=== PATIENT | male | born 1995 ===

== ENCOUNTER 2018-04-16 19:55 | Inpatient (IN) | payer OTHER ==
[2018-04-16] MEDS ORDERED: Belladonna-Phenobarbital PO STA (20:41)
[2018-04-16] MEDS ORDERED: Lactated Ringer's 1,000 ML IVB ONE (20:42)
[2018-04-16 21:06] LABS: BASO # 0.1 K/uL (0.0-0.2); BASO % 1.2 % (0.0-2.0); EOS # 0.1 K/uL (0.0-0.7); EOS % 0.8 % (0.0-4.0); HEMOGLOBIN 8.4 g/dL (12.0-18.0); LYMPH # 1.7 K/uL (1.0-4.3); LYMPH % 16.7 % (20.0-40.0); MEAN CELL VOLUME 59.4 fL (80.0-94.0); MEAN CORPUSCULAR HEMOGLOBIN 17.9 pg (27.0-31.0); MEAN CORPUSCULAR HGB CONC 30.2 g/dL (33.0-37.0); MEAN PLATELET VOLUME 6.4 fL (7.2-11.7); NEUT # 7.2 K/uL (1.8-7.0); NEUT % 71.3 % (50.0-75.0); RBC 4.7 Mil/uL (4.40-5.90); RED CELL DISTRIBUTION WIDTH 18.4 % (11.5-14.5)
[2018-04-16] MEDS ORDERED: Belladonna-Phenobarbital ONE (21:07)
[2018-04-16 21:24] LABS: ALB/GLOB RATIO 1.2 (1.0-2.1); ALBUMIN 3.7 g/dL (3.5-5.0); ALT/SGPT 16 U/L (21-72); AST/SGOT 10 U/L (17-59); BLOOD UREA NITROGEN 13 mg/dL (9-20); CALCIUM 8.9 mg/dl (8.6-10.4); GFR AFRICAN-AMERICAN > 60; GFR NON-AFRICAN AMERICAN > 60
[2018-04-16 21:29] LABS: LIPASE < 10 U/L (23-300)
[2018-04-16 21:36] LABS: SQUAMOUS EPITHIAL 1 /hpf (0-5); URINE BACTERIA OCC (<OCC); URINE BILIRUBIN 1+ (NEGATIVE); URINE BLOOD NEGATIVE (NEGATIVE); URINE CLARITY Hazy (Clear); URINE COLOR Amber (YELLOW); URINE GLUCOSE (UA) NORMAL (Normal); URINE PROTEIN 2+ mg/dL (NEGATIVE)
[2018-04-16 21:37] LABS: URINE LEUKOCYTE ESTERASE 1+ Leu/uL (Negative)
[2018-04-16] MEDS ORDERED: Iodixanol 320 MG/ML 100 ML BOTTLE IV ONE (21:40)
[2018-04-16 21:53] LABS: BARBITURATES, UR NEGATIVE (NEGATIVE); BENZODIAZEPINES, UR NEGATIVE (NEGATIVE); OPIATES, UR NEGATIVE (NEGATIVE); PHENCYCLIDINE, UR NEGATIVE (NEGATIVE)
[2018-04-16] MEDS ORDERED: Piperacillin/Tazobact 3.375 gm 100 ML IVPB STA (23:27)
[2018-04-16] MEDS ORDERED: Morphine 4 MG/ML VIAL ONE (23:32)
[2018-04-16] MEDS ORDERED: Piperacillin/Tazobact 3.375 gm 100 ML IVPB ONE (23:32)
--- NOTE | 2018-04-17 00:04 | C.PDOC ---
Time Seen by Provider: 04/16/18 20:35 Chief Complaint (Nursing): Abdominal Pain History Per: Patient Onset/Duration Of Symptoms: Days (1) Location Of Pain/Discomfort: RLQ Quality Of Discomfort: "Pain" Associated Symptoms: Diarrhea Alleviating Factors: None Additional History Per: Prior Records Past Medical History Reviewed: Historical Data, Nursing Documentation, Vital Signs Vital Signs: Last Vital Signs Temp 100.0 F H 04/16/18 22:44 Pulse 91 H 04/16/18 22:44 Resp 16 04/16/18 22:44 BP 96/57 L 04/16/18 22:44 Pulse Ox 99 04/17/18 00:04 - Medical History PMH: Anemia, Crohn's Disease Surgical History: No Surg Hx Family History: States: Unknown Family Hx - Social History Hx Alcohol Use: Yes Hx Substance Use: No - Immunization History Hx Tetanus Toxoid Vaccination: No Hx Influenza Vaccination: No Hx Pneumococcal Vaccination: No Review Of Systems Except As Marked, All Systems Reviewed And Found Negative. Constitutional: Negative for: Fever Cardiovascular: Negative for: Chest Pain Respiratory: Negative for: Cough, Shortness of Breath Gastrointestinal: Positive for: Abdominal Pain, Diarrhea. Negative for: Vomiting, Melena, Hematochezia, Hematemesis Genitourinary: Negative for: Dysuria Musculoskeletal: Negative for: Neck Pain, Back Pain Skin: Negative for: Rash Neurological: Negative for: Weakness, Numbness Physical Exam - Physical Exam Appears: Non-toxic, No Acute Distress Skin: Warm, Dry Head: Atraumatic, Normacephalic Eye(s): bilateral: PERRL, EOMI Neck: Normal ROM, Supple Cardiovascular: Rhythm Regular Respiratory: Normal Breath Sounds, No Accessory Muscle Use Gastrointestinal/Abdominal: Tenderness (RLQ), Guarding (RLQ) Back: No CVA Tenderness Extremity: Normal ROM Neurological/Psych: Oriented x3, Normal Motor, Normal Sensation ED Course And Treatment - Laboratory Results Result Diagrams: 04/16/18 21:01 04/16/18 21:01 Interpretation Of Abnormal: Anemia O2 Sat by Pulse Oximetry: 99 Pulse Ox Interpretation: Normal - CT Scan/US CT abd/pelv Other Rad Studies (CT/US): Read By Radiologist, Radiology Report Reviewed CT/US Interpretation: IMPRESSION: Large inflammatory phlegmonous mass in the right lower quadrant encasing the small and large. bowel with adjacent inflammatory mesenteric stranding. Diagnostic considerations include active. Crohn's flare up with abscess/phlegmon formation and perforated appendicitis with abscess. The. appendix is not identified. Midline pelvic fluid collection probably unopacified cecum and ascending colon. However, abscess is. not completely excluded. Further evaluation with oral contrast may be helpful to opacify the distal. small bowel and large bowel are further evaluation. - Physician Consult Information Physician Contacted: Eliu Astudillo (Surgery) Outcome Of Conversation: She will consult. Pt was also signed out to the Surgery resident prosthodontist/owner Dr. Harris. Progress - Interventions Interventions:: Observation, Intravenous fluid - Medications Administered Intravenous: NSAID, Opiate, Other (Abx) - Data Reviewed Data Reviewed: Lab, Diagnostic imaging, Old records - Patient Status Patient status: Partially improved - Continuity of Care Discussed patient case with:: Patient, ED Nurse, On-call PMD-pt unassigned Discussed pt. case with reimbursement consultant/specialty: General Surgery - Patient Plan Patient Plan: Admission Disposition Discussed With DrMitesh: Carlos Llamas Comment: He accepted pt on hospitalist service. Doctor Will See Patient In The: Hospital Counseled Patient/Family Regarding: Studies Performed, Diagnosis - Disposition Disposition: HOSPITALIZED Disposition Time: 00:08 Condition: GUARDED - Clinical Impression Clinical Impression: Phlegmon, RLQ abdominal pain, Exacerbation of Crohn's disease with complication
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
[2018-04-17] MEDS: Oxycodone/Acetaminophen 5/325 mg Tab PO PRN ×5 (01:59→23:41)
[2018-04-17] MEDS: Lactated Ringer's 1,000 ML IV SCH ×2 (02:00→14:59)
[2018-04-17] MEDS: metroNIDAZOLE IV 500 mg/100 ml 500 MG/100 ML BAG IVPB SCH ×3 (02:00→19:30)
[2018-04-17] MEDS: Ciprofloxacin 400mg/200ml D5W 400 MG/200 ML BAG IVPB SCH ×2 (03:11→14:56)
[2018-04-17 06:22] LABS: MEAN CELL VOLUME 59.1 fL (80.0-94.0); MEAN CORPUSCULAR HEMOGLOBIN 18.4 pg (27.0-31.0); MEAN CORPUSCULAR HGB CONC 31.1 g/dL (33.0-37.0); MEAN PLATELET VOLUME 6.5 fL (7.2-11.7); RBC 3.42 Mil/uL (4.40-5.90)
[2018-04-17 06:25] LABS: HEMOGLOBIN 6.3 g/dL (12.0-18.0)
[2018-04-17 06:30] LABS: IRON < 10 ug/dL (49-181)
[2018-04-17 06:36] LABS: ALB/GLOB RATIO 1.1 (1.0-2.1); ALBUMIN 2.8 g/dL (3.5-5.0); ALT/SGPT 22 U/L (21-72); AST/SGOT 14 U/L (17-59); BLOOD UREA NITROGEN 12 mg/dL (9-20); CALCIUM 8.2 mg/dl (8.6-10.4); GFR AFRICAN-AMERICAN > 60; GFR NON-AFRICAN AMERICAN > 60
[2018-04-17 06:38] LABS: TRANSFERRIN 156.86 mg/dL (206-381)
[2018-04-17 06:45] LABS: TOTAL IRON BINDING CAPACITY 251 ug/dL (250-450)
[2018-04-17 06:51] LABS: FREE T4 1.56 ng/dL (0.78-2.19)
[2018-04-17 07:12] LABS: FERRITIN 49.4 ng/mL
[2018-04-17 07:42] LABS: FOLATE 9.5 ng/mL
--- NOTE | 2018-04-17 08:03 | CP.PCM.PN ---
<Corinne Chin - Last Filed: 04/17/18 20:34> Subjective - Date & Time of Evaluation Date of Evaluation: 04/17/18 Time of Evaluation: 09:00 - Subjective Subjective: PGY-1 Corinne Chin D.O. Medicine Progress note for Dr. Vences service : Patient is seen and examined this morning. He is resting comfortably in bed. His mother is at bedside. He endorses moderate abdominal pain and continued watery, nonbloody diarrhea. He has an appetite and is able to tolerate liquids. He denies subjective fever and chills. He denies nausea and vomiting. The importance of outpt GI follow-up for Crohns is discussed and pt acknowledges understanding. Objective - Vital Signs/Intake and Output Vital Signs (last 24 hours): Temp Pulse Resp BP Pulse Ox 98.4 F 77 20 91/50 L 98 04/17/18 07:05 04/17/18 07:05 04/17/18 07:05 04/17/18 07:05 04/17/18 07:05 - Medications Medications: Current Medications Acetaminophen (Tylenol 325mg Tab) 650 mg PO ONCE PRN PRN Reason: Pain, Mild (1-3) Metronidazole (Flagyl) 500 mg in 100 mls @ 100 mls/hr IVPB Q8H [facility] PRN Reason: Protocol Last Admin: 04/17/18 02:00 Dose: 100 mls/hr Lactated Ringer's (Lactated Ringer's) 1,000 mls @ 75 mls/hr IV .[id number] [facility] Last Admin: 04/17/18 02:00 Dose: 75 mls/hr Ciprofloxacin (Cipro 400mg/200ml Dsw) 400 mg in 200 mls @ 133 mls/hr IVPB Q12H [facility] PRN Reason: Protocol Last Admin: 04/17/18 03:11 Dose: 133 mls/hr Oxycodone/Acetaminophen (Percocet 5/325 Mg Tab) 1 tab PO Q6H PRN PRN Reason: Pain, moderate (4-7) Stop: 04/20/18 01:22 Last Admin: 04/17/18 02:01 Dose: 1 tab Oxycodone/Acetaminophen (Percocet 5/325 Mg Tab) 2 tab PO Q6H PRN PRN Reason: Pain, severe (8-10) Stop: 04/20/18 01:22 Last Admin: 04/17/18 06:57 Dose: 2 tab - Labs Labs: 04/17/18 06:00 04/17/18 06:00 - Constitutional Appears: Well, No Acute Distress, Other (thin, cooperative) - Head Exam Head Exam: ATRAUMATIC, NORMAL INSPECTION, NORMOCEPHALIC - Eye Exam Eye Exam: EOMI, Normal appearance - ENT Exam ENT Exam: Mucous Membranes Moist - Neck Exam Neck Exam: Full ROM, Normal Inspection - Respiratory Exam Respiratory Exam: Clear to Ausculation Bilateral, NORMAL BREATHING PATTERN - Cardiovascular Exam Cardiovascular Exam: REGULAR RHYTHM, +S1, +S2 - GI/Abdominal Exam GI & Abdominal Exam: Soft, Tenderness (RLQ). absent: Rebound - Rectal Exam Rectal Exam: Deferred - Extremities Exam Extremities Exam: Full ROM, Normal Inspection - Back Exam Back Exam: NORMAL INSPECTION - Neurological Exam Neurological Exam: Alert, Awake, Oriented x3 - Psychiatric Exam Psychiatric exam: Normal Affect, Normal Mood - Skin Skin Exam: Intact, Normal Color, Warm Assessment and Plan - Assessment and Plan (Free Text) Assessment: Patient is a 22 yo male with a PMH of Crohns disease (noncompliant with meds) who presented with diarrhea and RLQ pain x2 days. Hgb on admission was 8.4 and decreased to 6.3- suspect GI bleed. CT A/P shows a soft tissue mass and possible appendicitis. Plan: Crohns exacerbation, acute - Cipro 400 mg IV q12hrs - Flagyl 500 mg IV q8hrs - Percocet 1-2 tabs PO q6hrs for pain - Prednisone 60 mg PO daily - Blood Cx pending - Stool Cx pending - Stool O&P pending - GI consult - Gen surg consult- no surgical indication at this time - CT A/P IMPRESSION: 1. Findings are most compatible with acute exacerbation of Crohn's disease involving the terminal ileum and ileocecal junction with a large inflammatory soft tissue mass anterior and superior to the ileocecal junction. 2. The appendix is not distinctly identified. Acute appendicitis with perforation and phlegmon formation is also a differential consideration. Anemia, acute - Unknown BL Hgb, was 8.4 on admission, 6.3 today - 2u PRBC - CBC in AM Hypokalemia- 3.1 - KCl 40 mEq PO once - KCl 10 mEq IV once - CMP in AM IVF: LR @ 75 mL/hr DVT ppx: ambulatory GI ppx: not indicated Code status: full code <Yolande Vega - Last Filed: 04/18/18 19:50> Objective - Vital Signs/Intake and Output Vital Signs (last 24 hours): Temp Pulse Resp BP Pulse Ox 98.3 F 78 18 103/61 97 04/18/18 15:27 04/18/18 15:27 04/18/18 15:27 04/18/18 15:27 04/18/18 15:27 Intake and Output: 04/18/18 04/19/18 18:59 06:59 Intake Total 1495 Output Total 750 Balance 745 - Medications Medications: Current Medications Acetaminophen (Tylenol 325mg Tab) 650 mg PO ONCE PRN PRN Reason: Pain, Mild (1-3) Metronidazole (Flagyl) 500 mg in 100 mls @ 100 mls/hr IVPB Q8H [facility] PRN Reason: Protocol Last Admin: 04/18/18 17:36 Dose: 100 mls/hr Lactated Ringer's (Lactated Ringer's) 1,000 mls @ 75 mls/hr IV .[id number] [facility] Last Admin: 04/18/18 18:26 Dose: Not Given Ciprofloxacin (Cipro 400mg/200ml Dsw) 400 mg in 200 mls @ 133 mls/hr IVPB Q12H [facility] PRN Reason: Protocol Last Admin: 04/18/18 15:40 Dose: 133 mls/hr Oxycodone/Acetaminophen (Percocet 5/325 Mg Tab) 1 tab PO Q6H PRN PRN Reason: Pain, moderate (4-7) Stop: 04/20/18 01:22 Last Admin: 04/18/18 10:38 Dose: 1 tab Oxycodone/Acetaminophen (Percocet 5/325 Mg Tab) 2 tab PO Q6H PRN PRN Reason: Pain, severe (8-10) Stop: 04/20/18 01:22 Last Admin: 04/17/18 23:41 Dose: 2 tab Potassium Chloride (Potassium Chloride Oral Soln) 20 meq PO BID [facility] Stop: 04/19/18 12:00 Last Admin: 04/18/18 17:36 Dose: 20 meq - Labs Labs: 04/18/18 06:13 04/18/18 06:13 Attending/Attestation - Attestation I have personally seen and examined this patient.: Yes I have fully participated in the care of the patient.: Yes I have reviewed all pertinent clinical information, including history, physical exam and plan: Yes Notes (Text): Seen and examined by me with the resident. Discussed about GI follow up and Crohn's treatment. Patient was not following a physician as an out pt. He goes to ER for acute exacerbation and gets steroid. on examination he has left LQ tenderness,no rigidity,no guarding 1. Crohn's acute exacerbation CT with IV contrast- acute exacerbation of Crohn's disease involving the terminal ileum and ileocecal junction with a large inflammatory soft tissue mass anterior and superior to the ileocecal junction. The appendix is not distinctly identified. Acute appendicitis with perforation and phlegmon formation is also a differential consideration. patient was seen by surgery.No surgical intervention at this time continue antibiotics d/w mother at bedside 2.Anemia-s/p transfusion,monitor cbc Assessment and the plan discussed with the resident
[2018-04-17] MEDS ORDERED: Potassium Chloride 20 mEq/15 ml LIQ UD PO ONE (09:57)
[2018-04-17] MEDS ORDERED: Potassium Chloride 20 mEq ER Tab PO ONE (10:29)
[2018-04-17] MEDS: Magnesium Sulfate 1 gm in D5W 1 GM/100 ML BAG IVPB SCH ×4 (10:30→14:27)
--- NOTE | 2018-04-17 11:42 | CT ---
Date of service: 04/16/2018 PROCEDURE: CT Abdomen and Pelvis with contrast HISTORY: RLQ pain. H/o Crohn's. r/o appendicitis. COMPARISON: None. TECHNIQUE: CT scan of the abdomen and pelvis was performed without administration of intravenous contrast. Oral contrast was not administered. Coronal and sagittal reformatted images were obtained. Contrast dose: With the stated history of Crohn's disease, findings are most compatible with Radiation dose: Total exam DLP = 217.71 mGy-cm. This CT exam was performed using one or more of the following dose reduction techniques: Automated exposure control, adjustment of the mA and/or kV according to patient size, and/or use of iterative reconstruction technique. FINDINGS: LOWER THORAX: The visualized lungs are clear. LIVER: Mild hepatomegaly and diffuse fatty liver. No gross lesion or ductal dilatation. GALLBLADDER AND BILE DUCTS: There are no calcified gallstones the PANCREAS: Normal in size with homogeneous enhancement. No ductal dilatation or focal mass. SPLEEN: Normal in size and appearance ADRENALS: No discrete nodule. KIDNEYS AND URETERS: Normal in size with homogeneous enhancement. No hydronephrosis or mass. VASCULATURE: No aortic aneurysm. BOWEL: There are fluid filled normal caliber proximal small bowel loops. There is severe segmental dilatation of fluid-filled distal ileum and severe circumferential mural thickening in the terminal ileum with an approximately 7.6 x 4.7 by 10.0 cm heterogeneously enhancing soft tissue mass anterior and superior to the ileocecal junction. The appendix is not distinctly identified. No bowel obstruction. APPENDIX: Not visualized. PERITONEUM: No free fluid. No free air. LYMPH NODES: There is reactive enlargement of the mesenteric lymph nodes. BLADDER: Partially decompressed. REPRODUCTIVE: The prostate gland is normal in size. BONES: No acute fracture. Within normal limits for the patient's age. OTHER FINDINGS: None. IMPRESSION: 1. Findings are most compatible with acute exacerbation of Crohn's disease involving the terminal ileum and ileocecal junction with a large inflammatory soft tissue mass anterior and superior to the ileocecal junction. 2. The appendix is not distinctly identified. Acute appendicitis with perforation and phlegmon formation is also a differential consideration. A preliminary report was provided by [facility].
[2018-04-17 15:10] LABS: C DIFF TOXIN A B NEGATIVE (NEGATIVE)
[2018-04-17 18:30] LABS: FECAL LEUKOCYTES NEGATIVE (NEGATIVE)
[2018-04-17 20:21] LABS: MEAN CELL VOLUME 64.6 fL (80.0-94.0); MEAN CORPUSCULAR HEMOGLOBIN 20.2 pg (27.0-31.0); MEAN CORPUSCULAR HGB CONC 31.2 g/dL (33.0-37.0); MEAN PLATELET VOLUME 6.3 fL (7.2-11.7); RBC 4.67 Mil/uL (4.40-5.90); RED CELL DISTRIBUTION WIDTH 24.1 % (11.5-14.5)
[2018-04-17 20:28] LABS: HEMOGLOBIN 9.4 g/dL (12.0-18.0)
--- NOTE | 2018-04-17 21:03 | CP.PCM.CON ---
History of Present Illness - History of Present Illness History of Present Illness: This is a 22 year old man with abdominal pain and diarrhea Patient states that he was diagnosed with Crohn's disease at the end of 2013 and has been hospitalized three to four times a year at [facility] for exacerbations characterized by RLQ pain and diarrhea. He has been treated with antibiotics and steroids on these occasions. Patient reports sudden onset of RLQ pain one day prior to admission. The pain is severe and persisted since then. He also reports having diarrhea, watery, six or seven times daily, without bleeding, since the onset of pain. He denies having fever, chills, nausea, vomiting, heartburn, difficulty swallowing and loss of appetite. Review of Systems - Review of Systems All systems: reviewed and no additional remarkable complaints except - Constitutional Constitutional: absent: Chills, Fever - Cardiovascular Cardiovascular: absent: Chest Pain - Respiratory Respiratory: absent: Cough, Dyspnea - Gastrointestinal Gastrointestinal: Abdominal Pain, Diarrhea, Loose Stools. absent: Constipation , Dysphagia, Heartburn, Hematochezia, Nausea, Vomiting - Genitourinary Genitourinary: absent: Difficulty Urinating - Musculoskeletal Musculoskeletal: absent: Back Pain - Integumentary Integumentary: absent: Rash Past Patient History - Past Medical History & Family History Past Medical History?: Yes - Past Social History Smoking Status: Never Smoked - CARDIAC Hx Cardiac Disorders: No - PULMONARY Hx Respiratory Disorders: No - NEUROLOGICAL Hx Neurological Disorder: No - HEENT Hx HEENT Problems: No - RENAL Hx Chronic Kidney Disease: No - ENDOCRINE/METABOLIC Hx Endocrine Disorders: No - HEMATOLOGICAL/ONCOLOGICAL Hx Anemia: Yes - INTEGUMENTARY Hx Dermatological Problems: No - MUSCULOSKELETAL/RHEUMATOLOGICAL Hx Musculoskeletal Disorders: No Hx Falls: No - GASTROINTESTINAL Hx Crohn's Disease: Yes - GENITOURINARY/GYNECOLOGICAL Hx Genitourinary Disorders: No - PSYCHIATRIC Hx Substance Use: No - SURGICAL HISTORY Hx Surgeries: Yes Other/Comment: Right facial area broken cheekbone 2013 - ANESTHESIA Hx Anesthesia: Yes Hx Anesthesia Reactions: No Meds Allergies/Adverse Reactions: Allergies Allergy/AdvReac Type Severity Reaction Status Date / Time No Known Allergies Allergy Verified 04/16/18 20:12 - Medications Medications: Current Medications Acetaminophen (Tylenol 325mg Tab) 650 mg PO ONCE PRN PRN Reason: Pain, Mild (1-3) Metronidazole (Flagyl) 500 mg in 100 mls @ 100 mls/hr IVPB Q8H [facility] PRN Reason: Protocol Last Admin: 04/17/18 19:30 Dose: 100 mls/hr Lactated Ringer's (Lactated Ringer's) 1,000 mls @ 75 mls/hr IV .[id number] [facility] Last Admin: 04/17/18 14:59 Dose: Not Given Ciprofloxacin (Cipro 400mg/200ml Dsw) 400 mg in 200 mls @ 133 mls/hr IVPB Q12H [facility] PRN Reason: Protocol Last Admin: 04/17/18 14:56 Dose: 133 mls/hr Potassium Chloride (Potassium Chloride 10 Meq/100 Ml) 10 meq in 100 mls @ 100 mls/hr IVPB ONCE ONE Stop: 04/17/18 20:59 Last Admin: 04/17/18 20:48 Dose: 100 mls/hr Oxycodone/Acetaminophen (Percocet 5/325 Mg Tab) 1 tab PO Q6H PRN PRN Reason: Pain, moderate (4-7) Stop: 04/20/18 01:22 Last Admin: 04/17/18 13:18 Dose: 1 tab Oxycodone/Acetaminophen (Percocet 5/325 Mg Tab) 2 tab PO Q6H PRN PRN Reason: Pain, severe (8-10) Stop: 04/20/18 01:22 Last Admin: 04/17/18 06:57 Dose: 2 tab Results - Vital Signs Recent Vital Signs: Last Vital Signs Temp 98.5 F 04/17/18 19:24 Pulse 79 04/17/18 19:24 Resp 18 04/17/18 19:24 BP 104/65 04/17/18 19:24 Pulse Ox 97 04/17/18 16:05 - Labs Result Diagrams: 04/17/18 19:56 04/17/18 06:00 Labs: Laboratory Results - last 24 hr 04/16/18 04/16/18 04/16/18 21:01 21:01 21:22 WBC 10.0 RBC 4.70 Hgb 8.4 L Hct 27.9 L MCV 59.4 L MCH 17.9 L MCHC 30.2 L RDW 18.4 H Plt Count 636 H MPV 6.4 L Neut % (Auto) 71.3 Lymph % (Auto) 16.7 L Mills % (Auto) 10.0 Eos % (Auto) 0.8 Baso % (Auto) 1.2 Neut # (Auto) 7.2 H Lymph # (Auto) 1.7 Mills # (Auto) 1.0 H Eos # (Auto) 0.1 Baso # (Auto) 0.1 Retic Count Sodium 144 Potassium 3.6 Chloride 100 Carbon Dioxide 26 Anion Gap 21 H BUN 13 Creatinine 0.8 Est GFR ( Amer) > 60 Est GFR (Non-Af Amer) > 60 Random Glucose 89 Calcium 8.9 Phosphorus Magnesium Iron TIBC % Saturation Transferrin Ferritin Total Bilirubin 0.5 AST 10 L ALT 16 L Alkaline Phosphatase 66 Total Protein 6.8 Albumin 3.7 Globulin 3.1 Albumin/Globulin Ratio 1.2 Lipase < 10 L Vitamin B12 Folate Free T4 TSH 3rd Generation Urine Color Shireen Urine Clarity Hazy Urine pH 5.0 Ur Specific [place] 1.029 Urine Protein 2+ H Urine Glucose (UA) Normal Urine Ketones 1+ H Urine Blood Negative Urine Nitrate Negative Urine Bilirubin 1+ H Urine Urobilinogen 4.0 Ur Leukocyte Esterase 1+ H Urine WBC (Auto) 8 H Urine RBC (Auto) 3 Ur Squamous Epith Cells 1 Urine Bacteria Occ H Stool Occult Blood Stool Leukocytes, Qual Urine Opiates Screen Urine Methadone Screen Ur Barbiturates Screen Ur Phencyclidine Scrn Ur Amphetamines Screen U Benzodiazepines Scrn U Oth Cocaine Metabols U Cannabinoids Screen C. difficile Ag & Toxin Blood Type Blood Type Confirm Antibody Screen 04/16/18 04/17/18 04/17/18 21:22 06:00 06:00 WBC 6.0 RBC 3.42 L Hgb 6.3 L* D Hct 20.2 L MCV 59.1 L MCH 18.4 L MCHC 31.1 L RDW 18.0 H Plt Count 450 H D MPV 6.5 L Neut % (Auto) Lymph % (Auto) Mills % (Auto) Eos % (Auto) Baso % (Auto) Neut # (Auto) Lymph # (Auto) Mills # (Auto) Eos # (Auto) Baso # (Auto) Retic Count 1.1 Sodium 137 Potassium 3.1 L Chloride 102 Carbon Dioxide 26 Anion Gap 13 BUN 12 Creatinine 0.8 Est GFR ( Amer) > 60 Est GFR (Non-Af Amer) > 60 Random Glucose 80 Calcium 8.2 L Phosphorus 3.7 Magnesium 1.7 Iron TIBC % Saturation Transferrin Ferritin 49.4 Total Bilirubin 0.4 AST 14 L D ALT 22 Alkaline Phosphatase 53 Total Protein 5.3 L Albumin 2.8 L D Globulin 2.5 Albumin/Globulin Ratio 1.1 Lipase Vitamin B12 520 Folate 9.5 Free T4 TSH 3rd Generation 1.98 Urine Color Urine Clarity Urine pH Ur Specific [place] Urine Protein Urine Glucose (UA) Urine Ketones Urine Blood Urine Nitrate Urine Bilirubin Urine Urobilinogen Ur Leukocyte Esterase Urine WBC (Auto) Urine RBC (Auto) Ur Squamous Epith Cells Urine Bacteria Stool Occult Blood Stool Leukocytes, Qual Urine Opiates Screen Negative Urine Methadone Screen Negative Ur Barbiturates Screen Negative Ur Phencyclidine Scrn Negative Ur Amphetamines Screen Negative U Benzodiazepines Scrn Negative U Oth Cocaine Metabols Negative U Cannabinoids Screen Negative C. difficile Ag & Toxin Blood Type Blood Type Confirm Antibody Screen 04/17/18 04/17/18 04/17/18 06:00 06:00 07:30 WBC RBC Hgb Hct MCV MCH MCHC RDW Plt Count MPV Neut % (Auto) Lymph % (Auto) Mills % (Auto) Eos % (Auto) Baso % (Auto) Neut # (Auto) Lymph # (Auto) Mills # (Auto) Eos # (Auto) Baso # (Auto) Retic Count Sodium Potassium Chloride Carbon Dioxide Anion Gap BUN Creatinine Est GFR ( Amer) Est GFR (Non-Af Amer) Random Glucose Calcium Phosphorus Magnesium Iron < 10 L TIBC 251 % Saturation Transferrin 156.86 L Ferritin Total Bilirubin AST ALT Alkaline Phosphatase Total Protein Albumin Globulin Albumin/Globulin Ratio Lipase Vitamin B12 Folate Free T4 1.56 TSH 3rd Generation Urine Color Urine Clarity Urine pH Ur Specific [place] Urine Protein Urine Glucose (UA) Urine Ketones Urine Blood Urine Nitrate Urine Bilirubin Urine Urobilinogen Ur Leukocyte Esterase Urine WBC (Auto) Urine RBC (Auto) Ur Squamous Epith Cells Urine Bacteria Stool Occult Blood Stool Leukocytes, Qual Urine Opiates Screen Urine Methadone Screen Ur Barbiturates Screen Ur Phencyclidine Scrn Ur Amphetamines Screen U Benzodiazepines Scrn U Oth Cocaine Metabols U Cannabinoids Screen C. difficile Ag & Toxin Blood Type A POSITIVE Blood Type Confirm A POSITIVE Antibody Screen Negative 04/17/18 04/17/18 04/17/18 14:05 14:33 19:56 WBC 9.0 RBC 4.67 Hgb 9.4 L D Hct 30.1 L MCV 64.6 L D MCH 20.2 L MCHC 31.2 L RDW 24.1 H Plt Count 531 H MPV 6.3 L Neut % (Auto) Lymph % (Auto) Mills % (Auto) Eos % (Auto) Baso % (Auto) Neut # (Auto) Lymph # (Auto) Mills # (Auto) Eos # (Auto) Baso # (Auto) Retic Count Sodium Potassium Chloride Carbon Dioxide Anion Gap BUN Creatinine Est GFR ( Amer) Est GFR (Non-Af Amer) Random Glucose Calcium Phosphorus Magnesium Iron TIBC % Saturation Transferrin Ferritin Total Bilirubin AST ALT Alkaline Phosphatase Total Protein Albumin Globulin Albumin/Globulin Ratio Lipase Vitamin B12 Folate Free T4 TSH 3rd Generation Urine Color Urine Clarity Urine pH Ur Specific [place] Urine Protein Urine Glucose (UA) Urine Ketones Urine Blood Urine Nitrate Urine Bilirubin Urine Urobilinogen Ur Leukocyte Esterase Urine WBC (Auto) Urine RBC (Auto) Ur Squamous Epith Cells Urine Bacteria Stool Occult Blood Positive H Stool Leukocytes, Qual Negative Urine Opiates Screen Urine Methadone Screen Ur Barbiturates Screen Ur Phencyclidine Scrn Ur Amphetamines Screen U Benzodiazepines Scrn U Oth Cocaine Metabols U Cannabinoids Screen C. difficile Ag & Toxin Negative Blood Type Blood Type Confirm Antibody Screen Assessment & Plan (1) RLQ abdominal pain Assessment and Plan: Pain is clearly due to phlegmonous mass in the RLQ, probably related to a sinus tract, probably not a true abscess. Will begin treatment with antibiotics and observe. We will request records from the other institutions where he has sought treatment, [facility] and [facility]. We will encourage him to follow up with the gastroenterolgist who has been caring for him previously. Status: Acute
[2018-04-18] MEDS: metroNIDAZOLE IV 500 mg/100 ml 500 MG/100 ML BAG IVPB SCH ×3 (01:57→17:36)
[2018-04-18] MEDS: Ciprofloxacin 400mg/200ml D5W 400 MG/200 ML BAG IVPB SCH ×2 (02:44→15:40)
--- NOTE | 2018-04-18 05:59 | CP.PCM.PN ---
<Corinne Chin - Last Filed: 04/18/18 20:24> Subjective - Date & Time of Evaluation Date of Evaluation: 04/18/18 Time of Evaluation: 09:15 - Subjective Subjective: PGY-1 Corinne Chin D.O. Medicine Progress note for Dr. Vences service : Patient is seen and examined this morning. He is resting comfortably in bed. His mother is at bedside. He endorses moderate abdominal pain 6-7/10. He states his stool is now formed and he last had a BM last night. He denies mikki blood or tarry stool. It was discussed with pt and mother that stool occult blood was positive, which is not uncommon in IBD. He has an appetite and is able to tolerate liquids. He denies subjective fever and chills. He denies nausea and vomiting. The importance of outpt GI follow-up for Crohns is discussed and pt acknowledges understanding. Pts mother states she will call insurance and inquire about physicians who are covered. Objective - Vital Signs/Intake and Output Vital Signs (last 24 hours): Temp Pulse Resp BP Pulse Ox 98.7 F 80 20 111/67 100 04/17/18 23:00 04/17/18 23:00 04/17/18 23:00 04/17/18 23:00 04/17/18 23:00 Intake and Output: 04/17/18 04/18/18 18:59 06:59 Intake Total 325 405 Balance 325 405 - Medications Medications: Current Medications Acetaminophen (Tylenol 325mg Tab) 650 mg PO ONCE PRN PRN Reason: Pain, Mild (1-3) Metronidazole (Flagyl) 500 mg in 100 mls @ 100 mls/hr IVPB Q8H [facility] PRN Reason: Protocol Last Admin: 04/18/18 01:57 Dose: 100 mls/hr Lactated Ringer's (Lactated Ringer's) 1,000 mls @ 75 mls/hr IV .[id number] [facility] Last Admin: 04/17/18 14:59 Dose: Not Given Ciprofloxacin (Cipro 400mg/200ml Dsw) 400 mg in 200 mls @ 133 mls/hr IVPB Q12H [facility] PRN Reason: Protocol Last Admin: 04/18/18 02:44 Dose: 133 mls/hr Oxycodone/Acetaminophen (Percocet 5/325 Mg Tab) 1 tab PO Q6H PRN PRN Reason: Pain, moderate (4-7) Stop: 04/20/18 01:22 Last Admin: 04/17/18 13:18 Dose: 1 tab Oxycodone/Acetaminophen (Percocet 5/325 Mg Tab) 2 tab PO Q6H PRN PRN Reason: Pain, severe (8-10) Stop: 04/20/18 01:22 Last Admin: 04/17/18 23:41 Dose: 2 tab - Labs Labs: 04/17/18 19:56 04/17/18 06:00 Microbiology 04/17/18 14:05 Stool Culture - Preliminary Stool Gram Negative Jelani Ova and Parasite Concentrate Exam - Final 04/17/18 05:31 Blood Culture - Preliminary Blood-Venous NO GROWTH AFTER 24 HOURS 04/17/18 05:29 Blood Culture - Preliminary Blood-Venous NO GROWTH AFTER 24 HOURS 04/18/18 06:13 04/18/18 06:13 - Constitutional Appears: Well, No Acute Distress - Head Exam Head Exam: ATRAUMATIC, NORMAL INSPECTION, NORMOCEPHALIC - Eye Exam Eye Exam: EOMI, Normal appearance - ENT Exam ENT Exam: Mucous Membranes Moist, Normal Exam - Neck Exam Neck Exam: Normal Inspection - Respiratory Exam Respiratory Exam: Clear to Ausculation Bilateral, NORMAL BREATHING PATTERN - Cardiovascular Exam Cardiovascular Exam: REGULAR RHYTHM - GI/Abdominal Exam GI & Abdominal Exam: Soft, Tenderness (diffuse), Normal Bowel Sounds - Rectal Exam Rectal Exam: Deferred - Extremities Exam Extremities Exam: Full ROM, Normal Inspection - Back Exam Back Exam: NORMAL INSPECTION - Neurological Exam Neurological Exam: Alert - Psychiatric Exam Psychiatric exam: Normal Affect, Normal Mood - Skin Skin Exam: Dry, Intact, Normal Color, Warm Assessment and Plan - Assessment and Plan (Free Text) Assessment: Patient is a 22 yo male with a PMH of Crohns disease (noncompliant with meds) who presented with diarrhea and RLQ pain x2 days. Hgb on admission was 8.4 and decreased to 6.3- suspect GI bleed. CT A/P with IV contrast shows a soft tissue mass and possible appendicitis. GI suspects more likely sinus tract. Hemoccult was positive and pt continues to be anemia yet asymptomatic. Plan: Crohns exacerbation, acute - Pt noncompliant with outpatient medications, typically comes to ED with exacerbation and receives steroids - Will obtain records from [facility] [place] and [facility] - Cipro 400 mg IV q12hrs - Flagyl 500 mg IV q8hrs - Percocet 1-2 tabs PO q6hrs for pain - Prednisone 60 mg PO daily - Blood Cx prelim negative > 24hrs - Stool Cx prelim GNR - Stool O&P- none - GI consult- liquid diet, continue IV abx - Gen surg consult- no surgical indication at this time, rec CT A/P with oral contrast, advance diet as tolerated - CT A/P with IV contrast IMPRESSION: 1. Findings are most compatible with acute exacerbation of Crohn's disease involving the terminal ileum and ileocecal junction with a large inflammatory soft tissue mass anterior and superior to the ileocecal junction. 2. The appendix is not distinctly identified. Acute appendicitis with perforation and phlegmon formation is also a differential consideration. - CT A/P with oral contrast pending Anemia, acute- pt asymptomatic - Unknown BL Hgb - Received 2u PRBC on 04/17- Hgb from 6.3 to 9.4 then 8.3 this AM - CBC in AM - Iron <10, TIBC 251, transferrin 156, ferritin 49 - Ferrous sulfate 325 mg PO daily Hypokalemia, acute, stable - KCl 20 mEq PO BID - LR @ 75 mL/hr - CMP in AM IVF: LR @ 75 mL/hr DVT ppx: ambulatory GI ppx: not indicated Code status: full code <Jarocho Vegajuangiulia - Last Filed: 04/18/18 21:11> Objective - Vital Signs/Intake and Output Vital Signs (last 24 hours): Temp Pulse Resp BP Pulse Ox 98.3 F 78 18 103/61 97 04/18/18 15:27 04/18/18 15:27 04/18/18 15:27 04/18/18 15:27 04/18/18 15:27 Intake and Output: 04/18/18 04/19/18 18:59 06:59 Intake Total 1495 Output Total 750 100 Balance 745 -100 - Medications Medications: Current Medications Acetaminophen (Tylenol 325mg Tab) 650 mg PO ONCE PRN PRN Reason: Pain, Mild (1-3) Ferrous Sulfate (Feosol) 325 mg PO DAILY [facility] Metronidazole (Flagyl) 500 mg in 100 mls @ 100 mls/hr IVPB Q8H [facility] PRN Reason: Protocol Last Admin: 04/18/18 17:36 Dose: 100 mls/hr Lactated Ringer's (Lactated Ringer's) 1,000 mls @ 75 mls/hr IV .[id number] [facility] Last Admin: 04/18/18 18:26 Dose: Not Given Ciprofloxacin (Cipro 400mg/200ml Dsw) 400 mg in 200 mls @ 133 mls/hr IVPB Q12H [facility] PRN Reason: Protocol Last Admin: 04/18/18 15:40 Dose: 133 mls/hr Oxycodone/Acetaminophen (Percocet 5/325 Mg Tab) 1 tab PO Q6H PRN PRN Reason: Pain, moderate (4-7) Stop: 04/20/18 01:22 Last Admin: 04/18/18 10:38 Dose: 1 tab Oxycodone/Acetaminophen (Percocet 5/325 Mg Tab) 2 tab PO Q6H PRN PRN Reason: Pain, severe (8-10) Stop: 04/20/18 01:22 Last Admin: 04/17/18 23:41 Dose: 2 tab Potassium Chloride (Potassium Chloride Oral Soln) 20 meq PO BID [facility] Stop: 04/19/18 12:00 Last Admin: 04/18/18 17:36 Dose: 20 meq - Labs Labs: 04/18/18 06:13 04/18/18 06:13 Attending/Attestation - Attestation I have personally seen and examined this patient.: Yes I have fully participated in the care of the patient.: Yes I have reviewed all pertinent clinical information, including history, physical exam and plan: Yes Notes (Text): Seen and examined by me with the resident. Discussed with his mother in detail about GI follow up and Crohn's treatment. Mother is going to find a GI with his insurance plan. Patient was not following a physician as an out pt. He goes to ER for acute exacerbation and gets steroid. on examination he has mild left LQ tenderness,no rigidity,no guarding 1. Crohn's acute exacerbation CT with IV contrast- acute exacerbation of Crohn's disease involving the terminal ileum and ileocecal junction with a large inflammatory soft tissue mass anterior and superior to the ileocecal junction. The appendix is not distinctly identified. Acute appendicitis with perforation and phlegmon formation is also a differential consideration. patient was seen by surgery.No surgical intervention at this time continue antibiotics,we will do CT abdomen and pelvis with oral contrast continue clear liquids today,follow stool c/s d/w mother at bedside 2.Anemia-s/p transfusion,monitor cbc Assessment and the plan discussed with the resident 04/18/18 21:11
[2018-04-18 06:20] LABS: HEMOGLOBIN 8.3 g/dL (12.0-18.0); MEAN CORPUSCULAR HEMOGLOBIN 20.7 pg (27.0-31.0); MEAN CORPUSCULAR HGB CONC 32.3 g/dL (33.0-37.0); MEAN PLATELET VOLUME 6.4 fL (7.2-11.7); RBC 4.02 Mil/uL (4.40-5.90); RED CELL DISTRIBUTION WIDTH 24.6 % (11.5-14.5); WHITE BLOOD COUNT 6.8 K/uL (4.8-10.8)
[2018-04-18 07:02] LABS: ALB/GLOB RATIO 1.1 (1.0-2.1); ALBUMIN 2.8 g/dL (3.5-5.0); ALT/SGPT 20 U/L (21-72); AST/SGOT 11 U/L (17-59); BLOOD UREA NITROGEN 6 mg/dL (9-20); CALCIUM 8.4 mg/dl (8.6-10.4); GFR AFRICAN-AMERICAN > 60; GFR NON-AFRICAN AMERICAN > 60
[2018-04-18] MEDS: Potassium Chloride 20 mEq/15 ml LIQ UD PO SCH ×2 (10:02→17:36)
--- NOTE | 2018-04-18 10:10 | CP.PCM.PN ---
Subjective - Date & Time of Evaluation Date of Evaluation: 04/18/18 Time of Evaluation: 10:05 - Subjective Subjective: General Surgery Progress Note for Dr. Astudillo This 22M with was seen and examined this AM at bedside. No acute events overnight. He is passing gas and moving his bowels. His abdominal pain is improving however he is still complaining of bloody BM. He denies any chest pain or SOB. Objective - Vital Signs/Intake and Output Vital Signs (last 24 hours): Temp Pulse Resp BP Pulse Ox 98.1 F 75 20 98/61 L 98 04/18/18 07:00 04/18/18 07:00 04/18/18 07:00 04/18/18 07:00 04/18/18 07:00 Intake and Output: 04/18/18 04/18/18 06:59 18:59 Intake Total 1005 Balance 1005 - Medications Medications: Current Medications Acetaminophen (Tylenol 325mg Tab) 650 mg PO ONCE PRN PRN Reason: Pain, Mild (1-3) Metronidazole (Flagyl) 500 mg in 100 mls @ 100 mls/hr IVPB Q8H [facility] PRN Reason: Protocol Last Admin: 04/18/18 10:02 Dose: 100 mls/hr Lactated Ringer's (Lactated Ringer's) 1,000 mls @ 75 mls/hr IV .[id number] [facility] Last Admin: 04/17/18 14:59 Dose: Not Given Ciprofloxacin (Cipro 400mg/200ml Dsw) 400 mg in 200 mls @ 133 mls/hr IVPB Q12H [facility] PRN Reason: Protocol Last Admin: 04/18/18 02:44 Dose: 133 mls/hr Oxycodone/Acetaminophen (Percocet 5/325 Mg Tab) 1 tab PO Q6H PRN PRN Reason: Pain, moderate (4-7) Stop: 04/20/18 01:22 Last Admin: 04/17/18 13:18 Dose: 1 tab Oxycodone/Acetaminophen (Percocet 5/325 Mg Tab) 2 tab PO Q6H PRN PRN Reason: Pain, severe (8-10) Stop: 04/20/18 01:22 Last Admin: 04/17/18 23:41 Dose: 2 tab Potassium Chloride (Potassium Chloride Oral Soln) 20 meq PO BID [facility] Stop: 04/19/18 12:00 Last Admin: 04/18/18 10:02 Dose: 20 meq - Labs Labs: 04/18/18 06:13 04/18/18 06:13 - Constitutional Appears: Non-toxic - Head Exam Head Exam: ATRAUMATIC, NORMOCEPHALIC - Eye Exam Eye Exam: EOMI, Normal appearance - ENT Exam ENT Exam: Mucous Membranes Moist - Respiratory Exam Respiratory Exam: NORMAL BREATHING PATTERN - Cardiovascular Exam Cardiovascular Exam: +S1, +S2 - GI/Abdominal Exam GI & Abdominal Exam: Soft, Tenderness. absent: Firm, Guarding, Rigid - Neurological Exam Neurological Exam: Alert, Awake - Psychiatric Exam Psychiatric exam: Normal Affect, Normal Mood - Skin Skin Exam: Dry, Intact Assessment and Plan - Assessment and Plan (Free Text) Assessment: 22M w/ right lower quadrant abdominal pain 2/2 Crohn's flare up Advance diet Serial Abd monitor BM Further recs per Dr. Baudilio Carson PGY3
[2018-04-18] MEDS: Oxycodone/Acetaminophen 5/325 mg Tab PO PRN (10:38)
[2018-04-18] MEDS: Lactated Ringer's 1,000 ML IV SCH ×2 (10:39→18:26)
[2018-04-19] MEDS: metroNIDAZOLE IV 500 mg/100 ml 500 MG/100 ML BAG IVPB SCH ×3 (01:46→17:13)
[2018-04-19] MEDS: Oxycodone/Acetaminophen 5/325 mg Tab PO PRN ×2 (01:50→17:12)
[2018-04-19] MEDS: Lactated Ringer's 1,000 ML IV SCH ×2 (03:10→07:05)
[2018-04-19] MEDS: Ciprofloxacin 400mg/200ml D5W 400 MG/200 ML BAG IVPB SCH ×2 (03:10→15:09)
--- NOTE | 2018-04-19 06:32 | CP.PCM.PN ---
Subjective - Date & Time of Evaluation Date of Evaluation: 04/19/18 Time of Evaluation: 09:00 - Subjective Subjective: PGY-1 Corinne Chin D.O. Medicine Progress note for Dr. Perdomo service : Patient is seen and examined this morning. He is sleeping comfortably and easily awoken. He states his abdominal pain is somewhat improving. He is able to ambulate without any pain. He still endorses severity of 7/10. He is able to tolerate a full liquid diet. He consumed all of the oral contrast for CT study. He reports his stools are now well formed. He denies mikki blood or tarry stool. He denies subjective fever and chills. He denies nausea and vomiting. The importance of outpt GI follow-up for Crohns is discussed and pt acknowledges understanding. Objective - Vital Signs/Intake and Output Vital Signs (last 24 hours): Temp Pulse Resp BP Pulse Ox 98.7 F 71 20 105/68 97 04/19/18 00:00 04/19/18 00:00 04/19/18 00:00 04/19/18 00:00 04/19/18 00:00 Intake and Output: 04/18/18 04/19/18 18:59 06:59 Intake Total 1495 1437.5 Output Total 750 250 Balance 745 1187.5 - Medications Medications: Current Medications Acetaminophen (Tylenol 325mg Tab) 650 mg PO ONCE PRN PRN Reason: Pain, Mild (1-3) Ferrous Sulfate (Feosol) 325 mg PO DAILY [facility] Metronidazole (Flagyl) 500 mg in 100 mls @ 100 mls/hr IVPB Q8H [facility] PRN Reason: Protocol Last Admin: 04/19/18 01:46 Dose: 100 mls/hr Lactated Ringer's (Lactated Ringer's) 1,000 mls @ 75 mls/hr IV .[id number] [facility] Last Admin: 04/19/18 03:10 Dose: 75 mls/hr Ciprofloxacin (Cipro 400mg/200ml Dsw) 400 mg in 200 mls @ 133 mls/hr IVPB Q12H [facility] PRN Reason: Protocol Last Admin: 04/19/18 03:10 Dose: 133 mls/hr Oxycodone/Acetaminophen (Percocet 5/325 Mg Tab) 1 tab PO Q6H PRN PRN Reason: Pain, moderate (4-7) Stop: 04/20/18 01:22 Last Admin: 04/19/18 01:50 Dose: 1 tab Oxycodone/Acetaminophen (Percocet 5/325 Mg Tab) 2 tab PO Q6H PRN PRN Reason: Pain, severe (8-10) Stop: 04/20/18 01:22 Last Admin: 04/17/18 23:41 Dose: 2 tab Potassium Chloride (Potassium Chloride Oral Soln) 20 meq PO BID [facility] Stop: 04/19/18 12:00 Last Admin: 04/18/18 17:36 Dose: 20 meq - Labs Labs: 04/18/18 06:13 04/18/18 06:13 04/19/18 07:48 04/19/18 07:48 Total Bilirubin 0.4 mg/dL (0.2-1.3) 04/19/18 07:48 AST 17 U/L (17-59) D 04/19/18 07:48 ALT 21 U/L (21-72) 04/19/18 07:48 Alkaline Phosphatase 57 U/L (38-126) 04/19/18 07:48 04/17/18 14:05 Stool Culture - Final Stool NO SALMONELLA, SHIGELLA OR CAMPYLOBACTER ISOLATED. Ova and Parasite Concentrate Exam - Final 04/17/18 05:31 Blood Culture - Preliminary Blood-Venous NO GROWTH AFTER 48 HOURS 04/17/18 05:29 Blood Culture - Preliminary Blood-Venous NO GROWTH AFTER 48 HOURS - Constitutional Appears: Well, No Acute Distress - Head Exam Head Exam: ATRAUMATIC, NORMAL INSPECTION, NORMOCEPHALIC - Eye Exam Eye Exam: EOMI, Normal appearance - ENT Exam ENT Exam: Mucous Membranes Moist, Normal Exam - Neck Exam Neck Exam: Full ROM, Normal Inspection - Respiratory Exam Respiratory Exam: Clear to Ausculation Bilateral, NORMAL BREATHING PATTERN - Cardiovascular Exam Cardiovascular Exam: REGULAR RHYTHM, +S1, +S2 - GI/Abdominal Exam GI & Abdominal Exam: Soft, Tenderness (mild RLQ). absent: Guarding, Mass, Rebound - Rectal Exam Rectal Exam: Deferred - Extremities Exam Extremities Exam: Full ROM, Normal Inspection - Back Exam Back Exam: NORMAL INSPECTION - Neurological Exam Neurological Exam: Alert, Awake, Normal Gait, Oriented x3 - Psychiatric Exam Psychiatric exam: Normal Affect, Normal Mood - Skin Skin Exam: Dry, Intact, Normal Color, Warm Assessment and Plan - Assessment and Plan (Free Text) Assessment: Patient is a 22 yo male with a PMH of Crohns disease (noncompliant with meds) who presented with diarrhea and RLQ pain x2 days. Hgb on admission was 8.4 and decreased to 6.3, and pt received 2u PRBC. CT A/P with IV contrast shows a soft tissue mass and possible appendicitis. GI suspects more likely sinus tract. Hemoccult was positive and pt continues to be anemia yet asymptomatic. Plan: Crohns exacerbation, acute, improving - Pt noncompliant with outpatient medications, typically comes to ED with exacerbation and receives steroids - Cipro 400 mg IV q12hrs - Flagyl 500 mg IV q8hrs - Percocet 1-2 tabs PO q6hrs for pain - Blood Cx prelim negative > 48 hrs - Stool Cx final negative - Stool O&P- none - GI consult- continue abx x2 wks prior to initiating steroid or anti-TNF therapy - Gen surg consult- no surgical indication at this time, advance diet as tolerated - CT A/P with IV contrast IMPRESSION: 1. Findings are most compatible with acute exacerbation of Crohn's disease involving the terminal ileum and ileocecal junction with a large inflammatory soft tissue mass anterior and superior to the ileocecal junction. 2. The appendix is not distinctly identified. Acute appendicitis with perforation and phlegmon formation is also a differential consideration. - CT A/P with oral contrast IMPRESSION: Ill-defined mass of soft tissue density in the right lower quadrant of the abdomen intimately related to distal ileum with curvilinear collections of oral contrast coursing through it. 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 No evidence of cutaneous fistula. No evidence of mikki abscess. No bowel obstruction. Shotty mesenteric lymph nodes and bilateral mild pelvic lymphadenopathy noted. Please note that this examination is of limited sensitivity for the detection of abscess in the absence of intravenous contrast administration. Anemia, acute, stable- pt asymptomatic - Unknown BL Hgb - Received 2u PRBC on 04/17- Hgb from 6.3 to 9.4, now stable at 8.6 - CBC in AM - Iron <10, TIBC 251, transferrin 156, ferritin 49 - Ferrous sulfate 325 mg PO daily Hypokalemia, acute, stable - KCl 20 mEq PO BID - LR @ 75 mL/hr - CMP in AM IVF: not indicated DVT ppx: SCDs GI ppx: not indicated Diet: full Code status: full code Dispo: plan to d/c tomorrow on oral medications and GI follow-up as outpatient
[2018-04-19 07:58] LABS: BASO % 0.9 % (0.0-2.0); EOS # 0.5 K/uL (0.0-0.7); EOS % 8.7 % (0.0-4.0); HEMOGLOBIN 8.6 g/dL (12.0-18.0); LYMPH # 1.6 K/uL (1.0-4.3); LYMPH % 27.7 % (20.0-40.0); MEAN CELL VOLUME 63.8 fL (80.0-94.0); MEAN CORPUSCULAR HEMOGLOBIN 20.6 pg (27.0-31.0); MEAN CORPUSCULAR HGB CONC 32.4 g/dL (33.0-37.0); MEAN PLATELET VOLUME 6.3 fL (7.2-11.7); MONO # 0.5 K/uL (0.0-0.8); MONO % 8.9 % (0.0-10.0); NEUT # 3.1 K/uL (1.8-7.0); NEUT % 53.8 % (50.0-75.0); RBC 4.18 Mil/uL (4.40-5.90); RED CELL DISTRIBUTION WIDTH 24.7 % (11.5-14.5); WHITE BLOOD COUNT 5.8 K/uL (4.8-10.8)
[2018-04-19] MEDS ORDERED: Iohexol 240 (50 ml) PO ONE (08:00)
[2018-04-19 08:46] LABS: ALB/GLOB RATIO 1.1 (1.0-2.1); ALBUMIN 2.9 g/dL (3.5-5.0); ALT/SGPT 21 U/L (21-72); AST/SGOT 17 U/L (17-59); BLOOD UREA NITROGEN 4 mg/dL (9-20); CALCIUM 8.5 mg/dl (8.6-10.4); GFR AFRICAN-AMERICAN > 60; GFR NON-AFRICAN AMERICAN > 60
[2018-04-19] MEDS: Potassium Chloride 20 mEq/15 ml LIQ UD PO SCH (10:14)
--- NOTE | 2018-04-19 12:20 | CP.PCM.PN ---
Subjective - Date & Time of Evaluation Date of Evaluation: 04/19/18 Time of Evaluation: 10:00 - Subjective Subjective: GENERAL SURGERY PROGRESS NOTE FOR DR. HARLEY 22M with was seen and examined at bedside. No acute events overnight. He is passing gas and last BM was Tuesday. He is tolerating his diet, denies nausea or vomiting. Denies abdominal pain. Objective - Vital Signs/Intake and Output Vital Signs (last 24 hours): Temp Pulse Resp BP Pulse Ox 98.1 F 90 20 103/64 96 04/19/18 11:16 04/19/18 11:16 04/19/18 11:16 04/19/18 11:16 04/19/18 11:16 Intake and Output: 04/19/18 04/19/18 06:59 18:59 Intake Total 1437.5 Output Total 250 Balance 1187.5 - Medications Medications: Current Medications Acetaminophen (Tylenol 325mg Tab) 650 mg PO Q6 PRN PRN Reason: Pain, Mild (1-3) Ferrous Sulfate (Feosol) 325 mg PO DAILY [facility] Last Admin: 04/19/18 10:14 Dose: 325 mg Metronidazole (Flagyl) 500 mg in 100 mls @ 100 mls/hr IVPB Q8H [facility] PRN Reason: Protocol Last Admin: 04/19/18 10:11 Dose: 100 mls/hr Lactated Ringer's (Lactated Ringer's) 1,000 mls @ 75 mls/hr IV .[id number] [facility] Last Admin: 04/19/18 07:05 Dose: Not Given Ciprofloxacin (Cipro 400mg/200ml Dsw) 400 mg in 200 mls @ 133 mls/hr IVPB Q12H [facility] PRN Reason: Protocol Last Admin: 04/19/18 03:10 Dose: 133 mls/hr Oxycodone/Acetaminophen (Percocet 5/325 Mg Tab) 1 tab PO Q6H PRN PRN Reason: Pain, moderate (4-7) Stop: 04/20/18 01:22 Last Admin: 04/19/18 01:50 Dose: 1 tab Oxycodone/Acetaminophen (Percocet 5/325 Mg Tab) 2 tab PO Q6H PRN PRN Reason: Pain, severe (8-10) Stop: 04/20/18 01:22 Last Admin: 04/17/18 23:41 Dose: 2 tab - Labs Labs: 04/19/18 07:48 04/19/18 07:48 - Constitutional Appears: Well, Non-toxic, No Acute Distress - Head Exam Head Exam: ATRAUMATIC, NORMAL INSPECTION - Eye Exam Eye Exam: EOMI, Normal appearance - Respiratory Exam Respiratory Exam: NORMAL BREATHING PATTERN. absent: Respiratory Distress - Cardiovascular Exam Cardiovascular Exam: +S1, +S2 - GI/Abdominal Exam GI & Abdominal Exam: Soft, Tenderness (mild RLQ tenderness). absent: Distended , Firm, Guarding, Rigid, Rebound - Neurological Exam Neurological Exam: Alert, Awake, Oriented x3 - Psychiatric Exam Psychiatric exam: Normal Affect, Normal Mood - Skin Skin Exam: Normal Color, Warm Assessment and Plan - Assessment and Plan (Free Text) Assessment: 22M w/ right lower quadrant abdominal pain secondary to Crohn's flare up - Tolerating full liquid diet, advanced to regular diet - Serial Abdominal exams - Discussed plan with Dr. Baudilio Lassiter PGY-4
[2018-04-19] MEDS ORDERED: Potassium Chloride 20 mEq ER Tab PO ONE (13:38)
--- NOTE | 2018-04-19 16:05 | CT ---
Date of service: 04/19/2018 PROCEDURE: CT Abdomen and Pelvis without intravenous contrast HISTORY: Crohns disease,RLQ pain,r/o sinus track,mass COMPARISON: 04/16/2018 TECHNIQUE: Without contrast.. Contrast dose: 0 Radiation dose: Total exam DLP = 244.84 mGy-cm. This CT exam was performed using one or more of the following dose reduction techniques: Automated exposure control, adjustment of the mA and/or kV according to patient size, and/or use of iterative reconstruction technique. FINDINGS: LOWER THORAX: Unremarkable. LIVER: Unremarkable. No gross lesion or ductal dilatation. GALLBLADDER AND BILE DUCTS: Unremarkable. PANCREAS: Unremarkable. No gross lesion or ductal dilatation. SPLEEN: Unremarkable. ADRENALS: Unremarkable. No mass. KIDNEYS AND URETERS: 4 mm nonobstructing right upper pole renal calculus. No left renal calculus. No renal mass or hydronephrosis. VASCULATURE: Unremarkable. No aortic aneurysm. BOWEL: The terminal ileum shows mild mural thickening. The distal ileum, proximal to the terminal ileum, is inseparable from an ill-defined mass of soft tissue density. There is a distended loop of small bowel seen entering this ill-defined mass from the left inferior aspect. There are curvilinear collections of oral contrast seen coursing through this soft tissue density suggestive of N0 and sterile fistulous. There is a small amount of gas seen within this soft tissue density. This likely represents a grossly inflamed loop of bowel with surrounding inflammatory change an fistula tract. It is unchanged grossly in appearance when compared to the prior CT examination. There is no evidence of cutaneous fistula. There is no evidence of bowel obstruction. APPENDIX: Not identified PERITONEUM: Unremarkable. No free fluid. No free air. LYMPH NODES: Shotty subcentimeter nodes are seen in the small bowel mesenteric. . There is a lymph node seen just to the right of midline on series 3, image 106, measuring 11 mm in short axis. There is bilateral pelvic lymphadenopathy. There is no retroperitoneal lymphadenopathy. BLADDER: Unremarkable. REPRODUCTIVE: Unremarkable prostate BONES: No acute fracture. OTHER FINDINGS: None. IMPRESSION: Ill-defined mass of soft tissue density in the right lower quadrant of the abdomen intimately related to distal ileum with curvilinear collections of oral contrast coursing through it. 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 No evidence of cutaneous fistula. No evidence of mikki abscess. No bowel obstruction. Shotty mesenteric lymph nodes and bilateral mild pelvic lymphadenopathy noted. Please note that this examination is of limited sensitivity for the detection of abscess in the absence of intravenous contrast administration.
--- NOTE | 2018-04-19 17:13 | CP.PCM.PN ---
Subjective - Date & Time of Evaluation Date of Evaluation: 04/19/18 Time of Evaluation: 16:52 - Subjective Subjective: Patient states that the pain is improving but is still present. He denies having nausea and vomiting. He had one soft bowel movement today which contained a small amount of blood. The records from [facility] and [facility] are not available as of yet. Objective - Vital Signs/Intake and Output Vital Signs (last 24 hours): Temp Pulse Resp BP Pulse Ox 98 F 69 20 111/75 97 04/19/18 15:12 04/19/18 15:12 04/19/18 15:12 04/19/18 15:12 04/19/18 15:12 Intake and Output: 04/19/18 04/19/18 06:59 18:59 Intake Total 1437.5 Output Total 250 Balance 1187.5 - Medications Medications: Current Medications Acetaminophen (Tylenol 325mg Tab) 650 mg PO Q6 PRN PRN Reason: Pain, Mild (1-3) Ferrous Sulfate (Feosol) 325 mg PO DAILY [facility] Last Admin: 04/19/18 10:14 Dose: 325 mg Metronidazole (Flagyl) 500 mg in 100 mls @ 100 mls/hr IVPB Q8H HILARIA PRN Reason: Protocol Last Admin: 04/19/18 10:11 Dose: 100 mls/hr Ciprofloxacin (Cipro 400mg/200ml Dsw) 400 mg in 200 mls @ 133 mls/hr IVPB Q12H HILARIA PRN Reason: Protocol Last Admin: 04/19/18 15:09 Dose: 133 mls/hr Oxycodone/Acetaminophen (Percocet 5/325 Mg Tab) 1 tab PO Q6H PRN PRN Reason: Pain, moderate (4-7) Stop: 04/20/18 01:22 Last Admin: 04/19/18 01:50 Dose: 1 tab Oxycodone/Acetaminophen (Percocet 5/325 Mg Tab) 2 tab PO Q6H PRN PRN Reason: Pain, severe (8-10) Stop: 04/20/18 01:22 Last Admin: 04/17/18 23:41 Dose: 2 tab - Labs Labs: 04/19/18 07:48 04/19/18 07:48 - Constitutional Appears: No Acute Distress - Head Exam Head Exam: ATRAUMATIC, NORMOCEPHALIC - Eye Exam Eye Exam: EOMI, PERRL - Neck Exam Neck Exam: absent: Lymphadenopathy, Thyromegaly - Respiratory Exam Respiratory Exam: NORMAL BREATHING PATTERN. absent: Rales, Rhonchi, Wheezes - Cardiovascular Exam Cardiovascular Exam: REGULAR RHYTHM, +S1, +S2. absent: Gallop, Rubs, Murmur - GI/Abdominal Exam GI & Abdominal Exam: Soft, Tenderness, Mass, Normal Bowel Sounds. absent: Organomegaly Additional comments: RLQ mass approximately 6 cm in diameter - Rectal Exam Rectal Exam: Deferred - Extremities Exam Extremities Exam: absent: Calf Tenderness, Pedal Edema Assessment and Plan (1) RLQ abdominal pain Assessment & Plan: Repeat CT scan shows strands of contrast, possible sinus tracts or enteroenteric fistulae. Recommend two weeks of antibiotics prior to starting steroids or anti-TNF therapy. Status: Acute
[2018-04-20 00:23] VITALS: TEMP 98.1
[2018-04-20] MEDS: Ciprofloxacin 400mg/200ml D5W 400 MG/200 ML BAG IVPB SCH (02:46)
[2018-04-20] MEDS: metroNIDAZOLE IV 500 mg/100 ml 500 MG/100 ML BAG IVPB SCH ×2 (02:46→09:17)
--- NOTE | 2018-04-20 06:05 | CP.PCM.DIS ---
Provider - Provider Date of Admission: 04/17/18 00:11 Attending physician: Luis Antonio Stone MD Primary care physician: none Consults: GI, general surgery Time Spent in preparation of Discharge (in minutes): 45 Diagnosis - Discharge Diagnosis (1) Exacerbation of Crohn's disease with complication Status: Acute Priority: High (2) Anemia Status: Acute Priority: High (3) Entero-enteric fistula Status: Chronic Priority: Medium (4) Hypokalemia Status: Resolved Priority: Medium Hospital Course - Lab Results Lab Results: Micro Results 04/17/18 05:31 Blood-Venous Blood Culture - Preliminary NO GROWTH AFTER 3 DAYS 04/17/18 05:29 Blood-Venous Blood Culture - Preliminary NO GROWTH AFTER 3 DAYS 04/17/18 14:05 Stool Stool Culture - Final NO SALMONELLA, SHIGELLA OR CAMPYLOBACTER ISOLATED. 04/17/18 14:05 Stool Ova and Parasite Concentrate Exam - Final Most Recent Lab Values WBC 5.8 K/uL (4.8-10.8) 04/19/18 07:48 RBC 4.18 Mil/uL (4.40-5.90) L 04/19/18 07:48 Hgb 8.6 g/dL (12.0-18.0) L 04/19/18 07:48 Hct 26.7 % (35.0-51.0) L 04/19/18 07:48 MCV 63.8 fL (80.0-94.0) L 04/19/18 07:48 MCH 20.6 pg (27.0-31.0) L 04/19/18 07:48 MCHC 32.4 g/dL (33.0-37.0) L 04/19/18 07:48 RDW 24.7 % (11.5-14.5) H 04/19/18 07:48 Plt Count 537 K/uL (130-400) H 04/19/18 07:48 MPV 6.3 fL (7.2-11.7) L 04/19/18 07:48 Neut % (Auto) 53.8 % (50.0-75.0) 04/19/18 07:48 Lymph % (Auto) 27.7 % (20.0-40.0) 04/19/18 07:48 [place] % (Auto) 8.9 % (0.0-10.0) 04/19/18 07:48 Eos % (Auto) 8.7 % (0.0-4.0) H 04/19/18 07:48 Baso % (Auto) 0.9 % (0.0-2.0) 04/19/18 07:48 Neut # (Auto) 3.1 K/uL (1.8-7.0) 04/19/18 07:48 Lymph # (Auto) 1.6 K/uL (1.0-4.3) 04/19/18 07:48 [place]iken # (Auto) 0.5 K/uL (0.0-0.8) 04/19/18 07:48 Eos # (Auto) 0.5 K/uL (0.0-0.7) 04/19/18 07:48 Baso # (Auto) 0.0 K/uL (0.0-0.2) 04/19/18 07:48 Retic Count 1.1 % (0.5-1.5) 04/17/18 06:00 Sodium 142 mmol/L (132-148) 04/19/18 07:48 Potassium 3.6 mmol/L (3.6-5.2) 04/19/18 07:48 Chloride 102 mmol/L (98-107) 04/19/18 07:48 Carbon Dioxide 27 mmol/L (22-30) 04/19/18 07:48 Anion Gap 17 (10-20) 04/19/18 07:48 BUN 4 mg/dL (9-20) L 04/19/18 07:48 Creatinine 0.7 mg/dL (0.8-1.5) L 04/19/18 07:48 Est GFR ( Amer) > 60 04/19/18 07:48 Est GFR (Non-Af Amer) > 60 04/19/18 07:48 Random Glucose 72 mg/dL (75-110) L 04/19/18 07:48 Calcium 8.5 mg/dl (8.6-10.4) L 04/19/18 07:48 Phosphorus 3.3 mg/dL (2.5-4.5) 04/19/18 07:48 Magnesium 1.6 mg/dL (1.6-2.3) 04/19/18 07:48 Iron < 10 ug/dL (49-181) L 04/17/18 06:00 TIBC 251 ug/dL (250-450) 04/17/18 06:00 % Saturation (20-55) 04/17/18 06:00 Transferrin 156.86 mg/dL (206-381) L 04/17/18 06:00 Ferritin 49.4 ng/mL 04/17/18 06:00 Total Bilirubin 0.4 mg/dL (0.2-1.3) 04/19/18 07:48 AST 17 U/L (17-59) D 04/19/18 07:48 ALT 21 U/L (21-72) 04/19/18 07:48 Alkaline Phosphatase 57 U/L (38-126) 04/19/18 07:48 C-Reactive Protein 133.50 mg/L (0.0-9.9) H 04/19/18 07:48 Total Protein 5.5 g/dL (6.3-8.3) L 04/19/18 07:48 Albumin 2.9 g/dL (3.5-5.0) L 04/19/18 07:48 Globulin 2.6 gm/dL (2.2-3.9) 04/19/18 07:48 Albumin/Globulin Ratio 1.1 (1.0-2.1) 04/19/18 07:48 Lipase < 10 U/L (23-300) L 04/16/18 21:01 Vitamin B12 520 pg/mL (239-931) 04/17/18 06:00 Folate 9.5 ng/mL 04/17/18 06:00 Free T4 1.56 ng/dL (0.78-2.19) 04/17/18 06:00 TSH 3rd Generation 1.98 mIU/L (0.46-4.68) 04/17/18 06:00 Urine Color Shireen (YELLOW) 04/16/18 21:22 Urine Clarity Hazy (Clear) 04/16/18 21:22 Urine pH 5.0 (5.0-8.0) 04/16/18 21:22 Ur Specific [place] 1.029 (1.003-1.030) 04/16/18 21:22 Urine Protein 2+ mg/dL (NEGATIVE) H 04/16/18 21:22 Urine Glucose (UA) Normal mg/dL (Normal) 04/16/18 21:22 Urine Ketones 1+ mg/dL (NEGATIVE) H 04/16/18 21:22 Urine Blood Negative (NEGATIVE) 04/16/18 21:22 Urine Nitrate Negative (NEGATIVE) 04/16/18 21:22 Urine Bilirubin 1+ (NEGATIVE) H 04/16/18 21:22 Urine Urobilinogen 4.0 mg/dL (0.2-1.0) 04/16/18 21:22 Ur Leukocyte Esterase 1+ Leonie/uL (Negative) H 04/16/18 21:22 Urine WBC (Auto) 8 /hpf (0-5) H 04/16/18 21:22 Urine RBC (Auto) 3 /hpf (0-3) 04/16/18 21:22 Ur Squamous Epith Cells 1 /hpf (0-5) 04/16/18 21:22 Urine Bacteria Occ (<OCC) H 04/16/18 21:22 Stool Occult Blood Positive (NEGATIVE) H 04/17/18 14:33 Stool Leukocytes, Qual Negative (NEGATIVE) 04/17/18 14:05 Urine Opiates Screen Negative (NEGATIVE) 04/16/18 21:22 Urine Methadone Screen Negative (NEGATIVE) 04/16/18 21:22 Ur Barbiturates Screen Negative (NEGATIVE) 04/16/18 21:22 Ur Phencyclidine Scrn Negative (NEGATIVE) 04/16/18 21:22 Ur Amphetamines Screen Negative (NEGATIVE) 04/16/18 21:22 U Benzodiazepines Scrn Negative (NEGATIVE) 04/16/18 21:22 U Oth Cocaine Metabols Negative (NEGATIVE) 04/16/18 21:22 U Cannabinoids Screen Negative (NEGATIVE) 04/16/18 21:22 C. difficile Ag & Toxin Negative (NEGATIVE) 04/17/18 14:05 Blood Type A POSITIVE 04/17/18 07:30 Blood Type Confirm A POSITIVE 04/17/18 07:30 Antibody Screen Negative 04/17/18 07:30 Microbiology 04/17/18 05:31 Blood Culture - Final Blood-Venous Corynebacterium Species Gram Stain - Final 04/17/18 05:29 Blood Culture - Preliminary Blood-Venous NO GROWTH AFTER 3 DAYS 04/17/18 14:05 Stool Culture - Final Stool NO SALMONELLA, SHIGELLA OR CAMPYLOBACTER ISOLATED. Ova and Parasite Concentrate Exam - Final - Hospital Course Hospital Course: Patient is a 22 year old male with past medical history of Crohn's disease diagnosed August 2014 at [facility], who presents to ED with complaint of right lower quadrant abdominal pain that started Tuesday night, an hour after possibly eating spoiled tofu food soup around 8pm. Patient describes his abdominal pain as a localized 7-8/10 sharp RLQ pain that is associated with non- bloody watery diarrhea. Patient reports that he has had 6-7 episodes of non- bloody watery diarrhea since Tuesday night around 10pm into Tuesday morning. Patient is not aware of any exacerbating/alleviating factors. Patient states that his symptoms is the same as his presentation of Crohn's flare up in the past. His last flare up was 5 months ago and he was seen and treated at [facility]; discharge with prednisone prescription. Patient states that he had a GI specialist in [place] when he was diagnosed and was placed on Prednisone, however , patient has not been following up with said GI specialist for a while now and he discontinued his prednisone 5 months without any physician's recommendation. Patient denies fever, chills, nausea, vomiting, night sweats, hematochezia, urinary symptoms, recent travels, sick contact, weight loss and change in appetite. Patient started pescatarian diet approximately 5 months ago. Patient was started on cipro and metronidazole for his acute exacerbation. GI and general surgery were consulted. CT A/P with IV and oral contrast were done. Patient was found to have what is likely an entero-enteral fistula along with inflammatory changes and lymphadenopathy. Surgery was not indicated. GI recommended treatment with abx for a total of 2 weeks prior to initiating long- term Crohns treatment. Patients Hgb on admission was 8.4 and decreased to 6.3 , and pt received 2u PRBC. He responded well and Hgb remained stable for the rest of his hospitalization (8.3-9.4). He was hemoccult positive and had decreased iron. Patients diarrhea and abdominal pain gradually improved over the hospital course. Other stool studies (C. diff, O&P, Cx) were negative. Additionally, his diet was slowly advanced as tolerated. The patient was given Percocet for pain control. Upon discharge, the patient had well-formed stools. He was tolerating a regular diet. His pain was well controlled. He was instructed to follow-up with GI and the resident clinic. The importance of GI follow-up and treatment for Crohns was stressed to the patient and his mother. They both acknowledged understanding. After the patient was discharged, 1/2 blood cultures grew Corynebacterium. It is probable that this is a contaminate. We will wait for final report with sensitivity and contact the patient if it is necessary to change antibiotics or take further action. Discharge Exam - Head Exam Head Exam: ATRAUMATIC, NORMAL INSPECTION, NORMOCEPHALIC - Eye Exam Eye Exam: EOMI, Normal appearance - ENT Exam ENT Exam: Mucous Membranes Moist, Normal Exam - Neck Exam Neck exam: Full Rom, Normal Inspection - Respiratory Exam Respiratory Exam: Clear to PA & Lateral, NORMAL BREATHING PATTERN, UNREMARKABLE - Cardiovascular Exam Cardiovascular Exam: REGULAR RHYTHM, +S1, +S2 - GI/Abdominal Exam GI & Abdominal Exam: Normal Bowel Sounds, Soft. absent: Tenderness - Rectal Exam Rectal Exam: Deferred - Extremities Exam Extremities exam: full ROM, normal inspection - Back Exam Back exam: NORMAL INSPECTION - Neurological Exam Neurological exam: Alert, CN II-XII Intact, Normal Gait, Oriented x3 - Psychiatric Exam Psychiatric exam: Normal Affect, Normal Mood - Skin Skin Exam: Dry, Intact, Normal Color, Warm Discharge Plan - Discharge Medications Prescriptions: Ciprofloxacin [Cipro] 500 mg PO BID #20 tab Ferrous Sulfate [Feosol] 325 mg PO DAILY #30 tab Metronidazole 500 mg PO TID #30 tablet - Follow Up Plan Condition: IMPROVED Disposition: HOME/ ROUTINE Patient education suggested?: Yes Instructions: Ciprofloxacin (Systemic), Metronidazole (Systemic), Crohn's Disease (DC), Ferrous Sulfate Additional Instructions: Patient is stable for discharge home as per Dr. Stone. Patient is to follow- up with GI physician and primary care physician within 1 week of discharge. If patient does not have a primary doctor, he is to follow-up at the [facility] ([phone]) within 1 week of discharge. Patient is being discharged with prescriptions for: Ciprofloxacin 500 mg take twice a day by mouth for 10 days Metronidazole 500 mg take three times a day by mouth for 10 days Ferrous sulfate 325 mg take one a day by mouth Patient is to return to the ED if symptoms recur or are worsening. This was explained to the patient who understands and agrees. Referrals: Palma Robertson MD [Staff Provider] -
[2018-04-20 06:44] LABS: BASO # 0.1 K/uL (0.0-0.2); EOS # 0.5 K/uL (0.0-0.7); EOS % 7.1 % (0.0-4.0); LYMPH # 1.4 K/uL (1.0-4.3); LYMPH % 19.4 % (20.0-40.0); MEAN CELL VOLUME 63.9 fL (80.0-94.0); MEAN CORPUSCULAR HEMOGLOBIN 20.8 pg (27.0-31.0); MEAN CORPUSCULAR HGB CONC 32.5 g/dL (33.0-37.0); MEAN PLATELET VOLUME 6.3 fL (7.2-11.7); MONO # 0.7 K/uL (0.0-0.8); MONO % 9.4 % (0.0-10.0); NEUT # 4.4 K/uL (1.8-7.0); NEUT % 63.1 % (50.0-75.0); RBC 4.33 Mil/uL (4.40-5.90)
[2018-04-20] MEDS ORDERED: Ciprofloxacin 400mg/200ml D5W 400 MG/200 ML BAG IVPB SCH ×2 (07:00→14:30)
[2018-04-20 07:01] LABS: ALB/GLOB RATIO 1.1 (1.0-2.1); ALT/SGPT 19 U/L (21-72); AST/SGOT 9 U/L (17-59); BLOOD UREA NITROGEN 4 mg/dL (9-20); CALCIUM 8.5 mg/dl (8.6-10.4); GFR AFRICAN-AMERICAN > 60; GFR NON-AFRICAN AMERICAN > 60
--- NOTE | 2018-04-20 08:04 | CP.PCM.PN ---
Subjective - Date & Time of Evaluation Date of Evaluation: 04/20/18 Time of Evaluation: 07:15 - Subjective Subjective: General Surgery progress note for Dr. Astudillo Patient seen and examined this morning at bedside. he denies n/v, is tolerating his diet well, is passing gas and had a BM last night. he states that his pain is improving. He otherwise denies fevers and chills. Objective - Vital Signs/Intake and Output Vital Signs (last 24 hours): Temp Pulse Resp BP Pulse Ox 98.1 F 81 20 102/63 99 04/20/18 00:00 04/20/18 00:00 04/20/18 00:00 04/20/18 00:00 04/20/18 00:00 - Medications Medications: Current Medications Acetaminophen (Tylenol 325mg Tab) 650 mg PO Q6 PRN PRN Reason: Pain, Mild (1-3) Ferrous Sulfate (Feosol) 325 mg PO DAILY [facility] Last Admin: 04/19/18 10:14 Dose: 325 mg Metronidazole (Flagyl) 500 mg in 100 mls @ 100 mls/hr IVPB Q8H HILARIA PRN Reason: Protocol Last Admin: 04/20/18 02:46 Dose: 100 mls/hr Ciprofloxacin (Cipro 400mg/200ml Dsw) 400 mg in 200 mls @ 133 mls/hr IVPB Q12H HILARIA PRN Reason: Protocol - Labs Labs: 04/20/18 06:34 04/20/18 06:34 - Constitutional Appears: Well, Non-toxic, No Acute Distress - Head Exam Head Exam: ATRAUMATIC, NORMOCEPHALIC - ENT Exam ENT Exam: Mucous Membranes Moist - Respiratory Exam Respiratory Exam: NORMAL BREATHING PATTERN - Cardiovascular Exam Cardiovascular Exam: +S1, +S2 - GI/Abdominal Exam GI & Abdominal Exam: Soft. absent: Distended, Firm, Guarding, Rigid, Tenderness - Extremities Exam Extremities Exam: absent: Calf Tenderness, Pedal Edema - Neurological Exam Neurological Exam: Alert, Awake, Oriented x3 - Psychiatric Exam Psychiatric exam: Normal Affect, Normal Mood - Skin Skin Exam: Dry, Intact, Normal Color, Warm Assessment and Plan - Assessment and Plan (Free Text) Assessment: 22M w/ right lower quadrant abdominal pain secondary to Crohn's flare up Plan: - tolerating regular diet, no N/V - Hgb stable/ improving 8.6 -> 9 today - last BM was yesterday with a small amount of blood per patient - no surgical intervention at this time, medical management as per primary team - discussed plan with Dr. Baudilio Silva, PGY 1
[2018-04-20 08:54] VITALS: O2SAT 98
[2018-04-20] MEDS ORDERED: Pneumococcal 23-Valent Vaccine IM ONE (15:22)
[2018-04-20 16:10] VITALS: BP 104/69; PULSE 84; RESP 20
== END 2018-04-20 16:47 | disposition home or self-care (01) | DRG 387 ==
LOC: C.ER 19:55 → C.5S 04-17 00:11
PROVIDERS: ADMIT Internal Medicine; ATTEND Internal Medicine
DX: K50.00 Crohn's disease of small intestine without complications (principal); E87.6 Hypokalemia; D64.9 Anemia, unspecified; Z91.14 Patient's other noncompliance with medication regimen